=== PATIENT | male | born 1950 | race Caucasian/White ===

== ENCOUNTER 2016-10-03 09:14 | Day surgery (SDC) | payer OTHER ==
[2016-10-03] MEDS ORDERED: LIDOCAINE 1% 2 ML INJ ONE (09:26)
[2016-10-03] MEDS ORDERED: LIDOCAINE 1% 5 ML SDV ID PRN (09:56)
[2016-10-03] MEDS ORDERED: LR 1,000 ML IV ONE (09:56)
[2016-10-03] MEDS ORDERED: PROPOFOL/EMULSION 500 MG/50 ML BOTTLE IV ONE (10:45)
--- NOTE | 2016-10-03 13:40 | GPN ---
[f rep st] PROCEDURE NOTE DATE OF PROCEDURE: 10/03/2016 PREPROCEDURE DIAGNOSIS: Need for screening colonoscopy. POSTPROCEDURE DIAGNOSIS: Need for screening colonoscopy. PROCEDURE: Colonoscopy with biopsy. MEDICATIONS: Monitored anesthesia care. INDICATIONS: The patient is a 66-year-old gentleman here for a screening colonoscopy. He has histor y of thrombosed external hemorrhoids. The risks and benefits of the procedure were discussed with t raheem patient and consent obtained. Risks include, but not limited to, bleeding, perforation, and mina tion. The patient is ASA class 3. PROCEDURE: The adult colonoscope was advanced into the terminal ileum, which appeared normal. The ileocecal valve, appendiceal orifice, cecum appeared normal. The ascending colon showed a 2 mm poly p, which was removed using cold biopsy forceps and sent off to Pathology. The hepatic flexure, esquivel sverse colon, splenic flexure, descending colon, sigmoid colon, and rectum were normal. Retroflexed views in the rectum were normal. IMPRESSION: Small colon polyp removed from ascending colon with cold biopsy forceps, otherwise, nor mal colonoscopy. RECOMMENDATION: 1. Discharge home with escort. 2. Advance diet as tolerated. 3. Continue current medications. 4. Repeat colonoscopy in 5-10 years depending on the polyp pathology. If the polyp is adenomatous, repeat colonoscopy in 5 years is recommended. Otherwise, repeat colonoscopy in 10 years is recomme nded. Thank you for allowing me to participate in the care of patient. Please do not hesitate to call with questions. /[id number]/MODL
== END 2016-10-03 12:40 | disposition home or self-care (01) ==
LOC: FSGY 09:14
PROVIDERS: ATTEND Internal Medicine Gastroenterology
PROC: 0DBK8ZX Excision of Ascending Colon, Via Natural or Artificial Opening Endoscopic, Diagnostic (ICD-10-PCS; principal; 2016-10-03 10:30)
DX: Z12.11 Encounter for screening for malignant neoplasm of colon (principal)
CPT/HCPCS: J2704

== ENCOUNTER → 2016-11-19 | Outpatient (CLI) | payer OTHER ==
[~2016-11-19] MED LIST: GADOBUTROL 10 ML VIAL IVP ONE
== END ==
LOC: FIMAGING 09:57
PROVIDERS: ATTEND Neurological Surgery
DX: Z98.890 Other specified postprocedural states (principal); Z86.011 Personal history of benign neoplasm of the brain; G93.89 Other specified disorders of brain
CPT/HCPCS: A9585

== ENCOUNTER → 2017-05-03 | Outpatient (CLI) | payer OTHER | LOC: FIMAGING 07:54 | PROVIDERS: ATTEND Nurse Practitioner | DX: D44.4 Neoplasm of uncertain behavior of craniopharyngeal duct (principal) | CPT/HCPCS: A9585 ==

== ENCOUNTER → 2017-12-07 | Outpatient (CLI) | payer OTHER | LOC: FIMAGING 06:53 | PROVIDERS: ATTEND Neurological Surgery | DX: Z08 Encounter for follow-up examination after completed treatment for malignant neoplasm (principal); D44.4 Neoplasm of uncertain behavior of craniopharyngeal duct; G93.89 Other specified disorders of brain; G31.9 Degenerative disease of nervous system, unspecified | CPT/HCPCS: 70553; A9585; 82565-PO ==